=== PATIENT | female | born 1945 | race Caucasian/White ===

== ENCOUNTER 2025-06-16 17:04 | Emergency (ER) | payer MEDICARE, OTHER, SELFPAY ==
[2025-06-16 17:17] VITALS: BP 217/70; PULSE 67; RESP 18; TEMP 35.4; O2SAT 98
--- NOTE | 2025-06-16 17:36 | W.ED.GENAD ---
Discharge Plan Disposition Patient Disposition: Home Discharge Details Clinical Impression: Dehiscence of wound Primary Care Provider: Unknown,Unknown ED Provider: Harley Fragoso Home Meds and New Rx's Prescriptions: New amoxicillin-pot clavulanate 875-125 mg tablet 1 tab PO BID Qty: 14 0RF Continued omeprazole 40 mg capsule,delayed release(DR/EC) 40 mg PO DAILY clonidine HCl [Catapres] 0.1 MG tablet 1 tab PO DAILY metoprolol succinate 50 MG tablet extended release 24 hr 1 tab PO DAILY chlorthalidone 25 MG tablet 1 tab PO DAILY simvastatin 20 MG tablet 1 tab PO DAILY potassium chloride 10 mEq tablet extended release 20 meq PO DAILY Discharge Instructions Additional Instructions: You had dehiscence of your wound which when this happens the recommendation is to let it heal by was called secondary intention which means your body will heal this over time. If you have signs of infection such as spreading redness or yellow-white discharge feel antibiotic. If you have severe worsening pain or high fevers return to the emergency department for reevaluation. HPI General Mode of arrival: ambulatory. Date/Time Provider Initiated Documentation: 06/16/25 17:05. Limitations to Documentation: no limitations. Information obtained by: patient. History of Present Illness 79 year old F presents to the emergency department with the chief complaint of left thigh wound opened up, Patient started experiencing this hour(s) (1) and it has been constant. No relieving factors improve symptom(s), No exacerbating factors reported . Patient notes no other symptoms.. Patient did receive the following treatments prior to arrival, none Related Data Home Medications ?Medication ?Instructions ?Recorded ?Confirmed chlorthalidone 25 mg tablet 1 tab PO DAILY 04/02/14 06/16/25 clonidine HCl 0.1 mg tablet 1 tab PO DAILY 04/02/14 06/16/25 (Catapres) metoprolol succinate 50 mg 1 tab PO DAILY 04/02/14 06/16/25 tablet,extended release 24 hr simvastatin 20 mg tablet 1 tab PO DAILY 04/02/14 06/16/25 omeprazole 40 mg capsule,delayed 40 mg PO DAILY 10/03/22 06/16/25 release potassium chloride 10 mEq 20 meq PO DAILY 10/03/22 06/16/25 tablet,extended release amoxicillin 875 mg-potassium 1 tab PO BID #14 tabs 06/16/25 clavulanate 125 mg tablet Previous Rx's ?Medication ?Instructions ?Recorded amoxicillin 875 mg-potassium 1 tab PO BID #14 tabs 06/16/25 clavulanate 125 mg tablet Allergies Allergy/AdvReac Type Severity Reaction Status Date / Time meperidine (From Demerol) Allergy Severe Anaphylaxis Verified 06/16/25 17:25 Opioids - Morphine Analogues Allergy Severe Anaphylaxis Verified 06/16/25 17:25 onabotulinumtoxinA (From Allergy Intermediate Unknown Verified 06/16/25 17:25 Botox) hydromorphone Allergy Anaphylaxis Verified 06/16/25 17:25 adhesive AdvReac Intermediate Skin Rash Verified 06/16/25 17:25 codeine AdvReac Intermediate Unknown Verified 06/16/25 17:25 hyaluronidase (From Hydase) AdvReac Intermediate Unknown Verified 06/16/25 17:25 melatonin AdvReac Intermediate Other (See Verified 06/16/25 17:25 Comment) tramadol AdvReac Intermediate Unknown Verified 06/16/25 17:25 pain meds Allergy Severe Anaphylaxsi Uncoded 06/16/25 17:25 s proline AdvReac Intermediate Topical Uncoded 06/16/25 17:25 Irritation tegaderm AdvReac Intermediate Topical Uncoded 06/16/25 17:25 Irritation General Stated Complaint: Laceration ANUSHA: 4 Review of Systems All systems reviewed & are unremarkable except as noted in HPI and below Constitutional Constitutional: Denies chills and Denies fever(s) Exam Const General: no acute distress Orientation: alert HENID Head: normal to inspection Ears: external ears normal General nose exam: external nose normal Mouth: moist mucous membranes Eyes General: appearance normal, both eyes and all related structures Neck Neck: normal visual inspection Resp Effort & Inspection: normal respiratory effort and able to speak in complete sentences Cardio Rate: regular rate Skin General skin exam: no erythema Neuro General: patient alert and patient oriented x3 Extrem General: capillary refill normal Psych Mental Status: mental status grossly normal Course Vital Signs Vital signs: Vital Signs Temperature 35.4 C L 06/16/25 17:17 Pulse 67 06/16/25 17:17 Respiratory Rate 18 06/16/25 17:17 Blood Pressure 217/70 H 06/16/25 17:17 Pulse Oximetry 98 06/16/25 17:17 Temperature 35.4 C L 06/16/25 17:17 Temperature Source Oral 06/16/25 17:17 Pulse 67 06/16/25 17:17 Respiratory Rate 18 06/16/25 17:17 Blood Pressure 217/70 H 06/16/25 17:17 Pulse Oximetry 98 06/16/25 17:17 Oxygen Delivery Method Room Air 06/16/25 17:17 Oxygen Flow Rate 0 06/16/25 17:17 Medical Decision Making 79-year-old female who states that she gets numerous procedures as her body does not resorb fluids and accumulate in the skin and states she had sutures placed to her left thigh 10 days ago and had sutures removed today [facility]. She says that they normally keep the sutures in for 2 to 3 weeks but they have decided to go out today. She says he was driving home when she felt the wound open and had a small amount of blood from the hematoma that formed,. Denies any fevers or systemic symptoms. She is well-appearing. She has a approximately 5 inch left lateral upper thigh incision that is two thirds healed and there is an open area at the top of it. There is what appears to feel like a hematoma underneath it. There is no erythema or fluctuance. I advised that normally when this happens the recommendation is not to resuture it and to allow to heal by secondary intention. I will have nursing place a dressing on it and I am going to give her a prescription in case signs of infection develop as she is leaving the country in a few days. She will follow-up with her surgeon as well and return precautions given Differential Diagnosis Differential Diagnosis: wound dehiscence, hematoma PFSH All Active Problems (Updated 06/16/25 @ 17:43 by Harley Fragoso MD) Dehiscence of wound (Acute) Sinusitis (Acute) Tinnitus of right ear (Acute) Asymmetrical sensorineural hearing loss (Acute) Impacted cerumen, right ear (Acute) Social History Smoking/Tobacco Use Status: Former Tobacco Use Smoking risk assessment performed?: Yes Drug use: Never
[2025-06-16 18:01] VITALS: BP 166/57; PULSE 66; RESP 18; O2SAT 97
== END 2025-06-16 18:03 | disposition home or self-care (01) ==
LOC: ER 18:01
PROVIDERS: Emergency Provider Emergency Medicine
DX: T81.33XA Disruption of traumatic injury wound repair, initial encounter (principal)
CPT/HCPCS: 99283 ×2